=== PATIENT | male | born 1950 | race Caucasian/White ===

== ENCOUNTER 2024-01-06 11:32 | Inpatient (IN) | payer OTHER ==
[2024-01-06] MEDS: SODIUM CHLORIDE 0.9% 500 ML INFUS.BAG IV ONE (13:35)
[2024-01-06 15:04] LABS: INR 1.58 (0.83-1.09); PROTHROMBIN TIME (PATIENT) 18.3 SEC (9.7-13.0)
[2024-01-06 15:05] LABS: BASO % 0.5 % (0-2.0); EOS % 0.3 % (0-4.5); HEMOGLOBIN 13.5 GM/dL (11.7-16.9); LYMPH % 23.8 % (8-40); MCH 32.7 pg (25.7-33.7); MCHC 34.7 g/dl (32.0-35.9); MONO % 13.9 % (3.8-10.2); NEUT % 61.5 % (42.8-82.8); PLATELET COUNT 101 10^3/uL (134-434); RBC 4.15 M/mm3 (4.00-5.60); RDW 14.8 % (11.9-15.9); WHITE BLOOD COUNT 2.7 K/mm3 (4.0-10.0)
[2024-01-06 15:30] LABS: POTASSIUM 3.4 mmol/L (3.5-5.1)
[2024-01-06 15:32] LABS: CALCIUM 8.2 mg/dL (8.5-10.1)
[2024-01-06 15:33] LABS: ALBUMIN 2.8 g/dl (3.4-5.0); BLOOD UREA NITROGEN 3.1 mg/dL (7-18)
[2024-01-06 15:36] LABS: CREATININE 0.6 mg/dL (0.55-1.3)
[2024-01-06 15:38] LABS: BILIRUBIN,TOTAL 1.3 mg/dL (0.2-1)
[2024-01-06] MEDS ORDERED: LORazepam 1 MG TABLET PO SCH (17:00)
[2024-01-06] MEDS: THIAMINE HCL 200 MG/2 ML VIAL IVPB SCH (20:11)
[2024-01-06] MEDS: POTASSIUM CHLORIDE TABS 20 MEQ TABLET.ER (FP) PO ONE (20:11)
[2024-01-06] MEDS: LORazepam 1 MG TABLET PO SCH (20:12)
[2024-01-06] MEDS: FOLIC ACID 1 MG TABLET (FP) PO SCH (20:12)
[2024-01-06 21:48] VITALS: BMI 30.4
[2024-01-06] MEDS: APIXABAN 5 MG TABLET PO SCH (22:55)
[2024-01-06] MEDS: FAMOTIDINE 20 MG TABLET PO SCH (22:55)
[2024-01-06] MEDS: TAMSULOSIN HCL 0.4 MG CAP PO SCH (22:55)
[2024-01-07] MEDS: FUROSEMIDE 40 MG TABLET (FP) PO SCH (06:41)
[2024-01-07 07:05] LABS: HEMATOCRIT 41.1 % (35.4-49); HEMOGLOBIN 13.8 GM/dL (11.7-16.9); MCHC 33.5 g/dl (32.0-35.9); MEAN CELL VOLUME 95.5 fl (80-96); MEAN PLT VOLUME 8.1 fl (7.5-11.1); PLATELET COUNT 90 10^3/uL (134-434); RBC 4.31 M/mm3 (4.00-5.60); RDW 14.8 % (11.9-15.9); WHITE BLOOD COUNT 2.5 K/mm3 (4.0-10.0)
[2024-01-07 07:28] LABS: POTASSIUM 3.5 mmol/L (3.5-5.1)
[2024-01-07 07:36] LABS: BLOOD UREA NITROGEN 3.9 mg/dL (7-18); CALCIUM 8.2 mg/dL (8.5-10.1); MAGNESIUM 1.5 mg/dL (1.8-2.4)
[2024-01-07 07:37] LABS: ALBUMIN 2.5 g/dl (3.4-5.0)
[2024-01-07 07:39] LABS: PHOSPHOROUS 2.5 mg/dL (2.5-4.9)
[2024-01-07 07:40] LABS: CREATININE 0.6 mg/dL (0.55-1.3)
[2024-01-07 07:41] LABS: BILIRUBIN,TOTAL 1.4 mg/dL (0.2-1); TOT PROT 5.5 g/dl (6.4-8.2)
[2024-01-07] MEDS: NALTREXONE HCL 50 MG TABLET PO SCH (11:23)
[2024-01-07] MEDS: LORazepam 1 MG TABLET PO PRN (14:44)
[2024-01-07] MEDS: THIAMINE HCL 200 MG/2 ML VIAL IVPB SCH (22:09)
[2024-01-08] MEDS ORDERED: LORazepam 0.5 MG TABLET ONE (04:45)
[2024-01-08] MEDS: LORazepam 1 MG TABLET PO SCH (06:28)
[2024-01-08 07:20] LABS: BASO % 0.7 % (0-2.0); EOS % 2.3 % (0-4.5); HEMATOCRIT 41.9 % (35.4-49); HEMOGLOBIN 14.1 GM/dL (11.7-16.9); LYMPH % 29.2 % (8-40); MCH 32.1 pg (25.7-33.7); MCHC 33.6 g/dl (32.0-35.9); MEAN CELL VOLUME 95.5 fl (80-96); MEAN PLT VOLUME 8.4 fl (7.5-11.1); MONO % 18.6 % (3.8-10.2); NEUT % 49.2 % (42.8-82.8); PLATELET COUNT 110 10^3/uL (134-434); RBC 4.39 M/mm3 (4.00-5.60); RDW 15.3 % (11.9-15.9); WHITE BLOOD COUNT 2.9 K/mm3 (4.0-10.0)
[2024-01-08 07:40] LABS: POTASSIUM 3.3 mmol/L (3.5-5.1)
[2024-01-08 07:48] LABS: BLOOD UREA NITROGEN 7.8 mg/dL (7-18); CALCIUM 8.8 mg/dL (8.5-10.1); MAGNESIUM 1.4 mg/dL (1.8-2.4)
[2024-01-08 07:49] LABS: ALBUMIN 2.5 g/dl (3.4-5.0)
[2024-01-08 07:51] LABS: CREATININE 0.6 mg/dL (0.55-1.3); PHOSPHOROUS 3.1 mg/dL (2.5-4.9)
[2024-01-08 07:53] LABS: TOT PROT 5.6 g/dl (6.4-8.2)
[2024-01-08] MEDS: POTASSIUM CHLORIDE ORAL LIQUID 20 MEQ/15 ML PO ONE (10:04)
[2024-01-08] MEDS: MAGNESIUM 2GM/50ML STERILE WATER IVPB IVPB SCH (10:05)
[2024-01-09] MEDS: LORazepam 0.5 MG TABLET PO SCH (05:40)
[2024-01-09] MEDS: INSULIN ASPART SLIDING SCALE (NOVOLOG) 1 VIAL SQ SCH (12:40)
[2024-01-09] MEDS: LORazepam 0.5 MG TABLET PO PRN (13:58)
[2024-01-10] MEDS: LORazepam 0.5 MG TABLET PO ONE (05:59)
[2024-01-10 07:37] LABS: BASO % 0.4 % (0-2.0); EOS % 1.3 % (0-4.5); HEMATOCRIT 42.5 % (35.4-49); HEMOGLOBIN 14.9 GM/dL (11.7-16.9); MCHC 35.1 g/dl (32.0-35.9); MEAN PLT VOLUME 8.5 fl (7.5-11.1); NEUT % 50.3 % (42.8-82.8); PLATELET COUNT 129 10^3/uL (134-434); RBC 4.53 M/mm3 (4.00-5.60); RDW 15.8 % (11.9-15.9); WHITE BLOOD COUNT 3.7 K/mm3 (4.0-10.0)
[2024-01-10 07:50] LABS: POTASSIUM 3.4 mmol/L (3.5-5.1)
[2024-01-10 07:57] LABS: ALBUMIN 2.5 g/dl (3.4-5.0); BLOOD UREA NITROGEN 13.2 mg/dL (7-18); MAGNESIUM 1.7 mg/dL (1.8-2.4)
[2024-01-10 08:00] LABS: CREATININE 0.6 mg/dL (0.55-1.3); PHOSPHOROUS 3.3 mg/dL (2.5-4.9)
[2024-01-10 08:01] LABS: BILIRUBIN,TOTAL 0.8 mg/dL (0.2-1); TOT PROT 5.6 g/dl (6.4-8.2)
[2024-01-10] MEDS: POTASSIUM CHLORIDE ORAL LIQUID 20 MEQ/15 ML PO ONE (14:03)
[2024-01-10] MEDS: MAGNESIUM SULF 50% (8.12 MEQ/2 ML-1 GM VIAL) IVPB ONE (14:03)
[2024-01-11 07:20] LABS: BASO % 0.4 % (0-2.0); EOS % 1.2 % (0-4.5); HEMATOCRIT 44.5 % (35.4-49); HEMOGLOBIN 15.2 GM/dL (11.7-16.9); MCH 32.5 pg (25.7-33.7); MCHC 34.1 g/dl (32.0-35.9); MEAN PLT VOLUME 8.6 fl (7.5-11.1); MONO % 14.1 % (3.8-10.2); NEUT % 49.3 % (42.8-82.8); PLATELET COUNT 137 10^3/uL (134-434); RBC 4.68 M/mm3 (4.00-5.60); RDW 15.8 % (11.9-15.9); WHITE BLOOD COUNT 4.2 K/mm3 (4.0-10.0)
[2024-01-11 07:37] LABS: POTASSIUM 3.3 mmol/L (3.5-5.1)
[2024-01-11 07:40] LABS: CALCIUM 8.5 mg/dL (8.5-10.1)
[2024-01-11 07:41] LABS: ALBUMIN 2.7 g/dl (3.4-5.0); BLOOD UREA NITROGEN 12.6 mg/dL (7-18); MAGNESIUM 1.9 mg/dL (1.8-2.4)
[2024-01-11 07:44] LABS: CREATININE 0.7 mg/dL (0.55-1.3); PHOSPHOROUS 3.4 mg/dL (2.5-4.9)
[2024-01-11 07:47] LABS: BILIRUBIN,TOTAL 0.8 mg/dL (0.2-1)
[2024-01-11] MEDS: POTASSIUM CHLORIDE ORAL LIQUID 20 MEQ/15 ML PO ONE (10:36)
[2024-01-11 15:24] VITALS: RESP 20
[2024-01-11 18:57] VITALS: TEMP 98.2
[2024-01-11 22:59] VITALS: BP 130/65; PULSE 80
== END 2024-01-11 22:30 | disposition home or self-care (01) | DRG 897 ==
LOC: JER 11:32 → JERBED 17:56 → J4W 18:31 → OBSVTOIN 19:19
PROVIDERS: ADMIT Internal Medicine; ATTEND Internal Medicine
DX: F10.220 Alcohol dependence with intoxication, uncomplicated (principal); R44.3 Hallucinations, unspecified; I48.91 Unspecified atrial fibrillation; E11.9 Type 2 diabetes mellitus without complications; N40.0 Benign prostatic hyperplasia without lower urinary tract symptoms; E78.5 Hyperlipidemia, unspecified; F32.A Depression, unspecified; F41.9 Anxiety disorder, unspecified; K21.9 Gastro-esophageal reflux disease without esophagitis; D72.819 Decreased white blood cell count, unspecified; E87.6 Hypokalemia; E55.9 Vitamin D deficiency, unspecified
CPT/HCPCS: 36415; 70450-TC; 71046-TC-FY; 72125-TC; 72170-TC-FY; 80053; 80307; 82140; 82962; 83735; 84100; 84443; 84484; 85025; 85027; 85610; 87635; 93005; 93010; 93306-TC; 97116-GP; 97161-GP; 99285-25; G0378